=== PATIENT | female | born 1955 | race Caucasian/White ===

== ENCOUNTER 2018-07-01 03:50 | Observation (INO) | payer BC ==
--- NOTE | 2018-07-01 04:19 | ED PDOC ---
Arrival/HPI - General Chief Complaint: Chest Pain Time Seen by Provider: 07/01/18 03:59 Historian: Patient - History of Present Illness Narrative History of Present Illness (Text): 07/01/18 04:06 Eva Morales is a 62 year old female, whose past medical history includes diabetes and ESRD on hemodialysis (Thu/Thu/Thu), who presents to the emergency department brought in by EMS for chest pain Patient states she woke up this morning with mid-sternal chest pain with associated shortness of breath. Patient notes she was fully dialyzed yesterday and states she has not experienced similar symptoms in the past. The patient denies any fever, chills, abdominal pain, nausea, vomiting, diarrhea, urinary symptoms, back pain, neck pain, headache, dizziness, or any other complaints. Biomechanical Engineer: Dr. Christian Symptom Onset: Gradual Symptom Course: Unchanged Activities at Onset: Light Context: Home Past Medical History - Provider Review Nursing Documentation Reviewed: Yes - Cardiac Hx Hypertension: Yes Hx Pacemaker: No - Neurological Hx Paralysis: No - Renal Hx Dialysis: Yes Type of Dialysis Access: R chest wall, R AV fistula Date of Last Dialysis Treatment: 06/30/18 - Endocrine/Metabolic Hx Diabetes Mellitus Type 2: Yes - Hematological/Oncological Hx Blood Transfusions: No - Musculoskeletal/Rheumatological Hx Musculoskeletal Disorders: No - Psychiatric Hx Emotional Abuse: No Hx Physical Abuse: No Hx Substance Use: No - Surgical History Other/Comment: AV fistula R, R chest wall dialysis access - Anesthesia Hx Anesthesia: Yes Hx Anesthesia Reactions: No Hx Malignant Hyperthermia: No - Suicidal Assessment Feels Threatened In Home Enviroment: No Family/Social History - Physician Review Nursing Documentation Reviewed: Yes Family/Social History: Unknown Family HX Smoking Status: Light Smoker < 10 Cigarettes Daily Hx Alcohol Use: No Hx Substance Use: No Allergies/Home Meds Allergies/Adverse Reactions: Allergies No Known Allergies Allergy (Verified 07/01/18 03:55) Home Medications: Home Meds Medication Instructions Recorded Confirmed RX: Nebivolol [Bystolic] 10 mg PO DAILY 01/08/18 07/01/18 RX: hydrALAZINE [Apresoline] 100 mg PO TID 01/08/18 07/01/18 Review of Systems - Physician Review All systems were reviewed & negative as marked: Yes - Review of Systems Constitutional: Normal. absent: Fevers Eyes: Normal ENT: Normal Respiratory: SOB Cardiovascular: Chest Pain Gastrointestinal: Normal. absent: Abdominal Pain, Diarrhea, Nausea, Vomiting Genitourinary Female: Normal. absent: Dysuria, Frequency, Hematuria, Urine Output Changes Musculoskeletal: Normal. absent: Back Pain, Neck Pain Skin: Normal. absent: Rash Neurological: Normal. absent: Headache, Dizziness Endocrine: Normal Hemo/Lymphatic: Normal Psychiatric: Normal Physical Exam Vital Signs Reviewed: Yes Vital Signs Pulse Resp BP Pulse Ox 07/01/18 04:07 67 16 151/85 H 100 Temperature: Afebrile Blood Pressure: Hypertensive Pulse: Regular Respiratory Rate: Normal Appearance: Positive for: Well-Appearing, Non-Toxic, Comfortable Pain Distress: None Mental Status: Positive for: Alert and Oriented X 3 - Systems Exam Head: Present: Atraumatic, Normocephalic Pupils: Present: PERRL Extroacular Muscles: Present: EOMI Conjunctiva: Present: Normal Mouth: Present: Moist Mucous Membranes Neck: Present: Normal Range of Motion Respiratory/Chest: Present: Clear to Auscultation, Good Air Exchange. No: Respiratory Distress, Accessory Muscle Use Cardiovascular: Present: Regular Rate and Rhythm, Normal S1, S2. No: Murmurs Abdomen: No: Tenderness, Distention, Peritoneal Signs Back: Present: Normal Inspection Upper Extremity: Present: Normal Inspection. No: Cyanosis, Edema Lower Extremity: Present: Normal Inspection. No: Edema Neurological: Present: GCS=15, CN II-XII Intact, Speech Normal Skin: Present: Warm, Dry, Normal Color. No: Rashes Psychiatric: Present: Alert, Oriented x 3, Normal Insight, Normal Concentration Medical Decision Making ED Course and Treatment: 07/01/18 04:06 Impression: 62 year old female complaining of chest pain and shortness of breath. Plan: -- EKG -- CXR -- Labs, cardiac enzymes -- UA -- Reassess and disposition Progress Notes: reviewed EKG, NSR at 68 bpm[address] Non-specific ST/T wave changes. 07/01/18 05:05 CXR reviewed, shows no acute processes. 07/01/18 05:[address] Byrne, who is aware and agrees with plan. Accepts pt in to his service. Pt will go to remote telemetry observation for chest pain. - RAD Interpretation Radiology Orders: 07/01/18 04:07 CHEST PORTABLE [RAD] Stat Wire Mesh Gate Assembler: ED Physician - EKG Interpretation Interpreted by ED Physician: Yes Type: 12 lead EKG - Scribe Statement The provider has reviewed the documentation as recorded by the Scribe Provider Attestation: Elizabeth Tate Provider Scribe Attestation: All medical record entries made by the Scribe were at my direction and personally dictated by me. I have reviewed the chart and agree that the record accurately reflects my personal performance of the history, physical exam, medical decision making, and the department course for this patient. I have also personally directed, reviewed, and agree with the discharge instructions and disposition. Disposition/Present on Arrival - Present on Arrival Any Indicators Present on Arrival: No History of DVT/PE: No History of Uncontrolled Diabetes: No Urinary Catheter: No History of Decub. Ulcer: No History Surgical Site Infection Following: None - Disposition Have Diagnosis and Disposition been Completed?: Yes Diagnosis: Chest pain Disposition: HOSPITALIZED Disposition Time: 05:10 Patient Problems: Current Active Problems Problem Status Onset Chest pain Acute Condition: FAIR
[2018-07-01 04:35] LABS: BASO # 0.01 K/mm3 (0.0-2.0); BASO % 0.2 % (0.0-3.0); EOS % 0.6 % (1.5-5.0); HEMOGLOBIN 11.5 g/dL (12.0-16.0); LYMPH # 0.7 (1.2-3.4); LYMPH % 10.3 % (22.0-35.0); MEAN CORPUSCULAR HEMOGLOBIN 28.7 pg (25.0-35.0); MEAN CORPUSCULAR HGB CONC 31.5 g/dl (31.0-37.0); MEAN PLATELET VOLUME 9.1 fl (7.0-11.0); MONO # 0.9 (0.1-0.6); MONO % 14.6 % (1.0-6.0); RBC 4.01 10^6/uL (3.5-6.1); RED CELL DISTRIBUTION WIDTH 14.5 % (11.5-14.5); WHITE BLOOD COUNT 6.3 10^3/uL (4.5-11.0)
[2018-07-01 04:51] LABS: ALB/GLOB RATIO 1.2 (1.1-1.8); ALBUMIN 4.4 g/dL (3.0-4.8); AST/SGOT 32 U/L (14-36); BLOOD UREA NITROGEN 50 mg/dL (7-21); CALCIUM 8.8 mg/dL (8.4-10.5); GFR NON-AFRICAN AMERICAN 5
[2018-07-01 05:02] LABS: TROPONIN I < 0.01 ng/mL
[2018-07-01 05:40] LABS: ALT/SGPT < 6 U/L (7-56)
[2018-07-01 07:06] LABS: INR 1.05; PROTHROMBIN TIME 11.9 SECONDS (9.4-12.5)
--- NOTE | 2018-07-01 07:51 | RAD ---
Date of service: 07/01/2018 HISTORY: cp COMPARISON: Chest radiographs 01/08/2018. FINDINGS: LUNGS: In the interval, a total right central venous dialysis catheter is identified in situ terminating at the right atrium. No interval pulmonary disease appreciated bilaterally. PLEURA: No significant pleural effusion identified, no pneumothorax apparent. CARDIOVASCULAR: No aortic atherosclerotic calcification present. Normal cardiac size. No pulmonary vascular congestion. OSSEOUS STRUCTURES: No significant abnormalities. VISUALIZED UPPER ABDOMEN: Normal. OTHER FINDINGS: None. IMPRESSION: No interval acute cardiopulmonary disease appreciated. Interval central venous dialysis catheter deployment.
[2018-07-01] MEDS ORDERED: Aminophylline 25 mg/ml Inj ONE (08:48)
[2018-07-01] MEDS ORDERED: NEBIVOLOL 10 MG PO SCH (10:00)
--- NOTE | 2018-07-01 12:25 | CP.PCM.CON ---
History of Present Illness - History of Present Illness History of Present Illness: Awake, alert,no distress Reason for consultation: Cardiac evaluation of chest pain Brief history of present illness: A 62 year old female who came in to the ER due to mid sternal chest pain non radiating with shortness of breath. She had hemodialysis yesterday. History of diabetes and ESRD on hemodialysis (Mon/Thu/Thu), right AV fistula, hypertension, current smoker. Seen and examined by Dr. Ye Review of Systems - Review of Systems All systems: reviewed and no additional remarkable complaints except Review of Systems: as per HPI Past Patient History - Past Social History Smoking Status: Light Smoker < 10 Cigarettes Daily - CARDIAC Hx Hypertension: Yes Hx Pacemaker: No - NEUROLOGICAL Hx Paralysis: No - RENAL Hx Dialysis: Yes Type of Dialysis Access: R chest wall, R AV fistula Date of Last Dialysis Treatment: 06/30/18 - ENDOCRINE/METABOLIC Hx Diabetes Mellitus Type 2: Yes - HEMATOLOGICAL/ONCOLOGICAL Hx Blood Transfusions: No - MUSCULOSKELETAL/RHEUMATOLOGICAL Hx Musculoskeletal Disorders: No - PSYCHIATRIC Hx Emotional Abuse: No Hx Physical Abuse: No Hx Substance Use: No - SURGICAL HISTORY Other/Comment: AV fistula R, R chest wall dialysis access - ANESTHESIA Hx Anesthesia: Yes Hx Anesthesia Reactions: No Hx Malignant Hyperthermia: No Meds Allergies/Adverse Reactions: Allergies Allergy/AdvReac Type Severity Reaction Status Date / Time No Known Allergies Allergy Verified 07/01/18 03:55 - Medications Medications: Current Medications Acetaminophen (Tylenol 325mg Tab) 650 mg PO Q4H PRN PRN Reason: Pain, Mild (1-3) Hydralazine HCl (Apresoline) 100 mg PO TID [facility] Nebivolol [Bystolic] (10 Mg (Home Med)) 10 mg PO DAILY [facility] Physical Exam - Constitutional Appears: Non-toxic, No Acute Distress - Head Exam Head Exam: NORMAL INSPECTION, NORMOCEPHALIC - Eye Exam Eye Exam: Normal appearance Pupil Exam: NORMAL ACCOMODATION - ENT Exam ENT Exam: Mucous Membranes Moist - Respiratory Exam Respiratory Exam: Decreased Breath Sounds, NORMAL BREATHING PATTERN - Cardiovascular Exam Cardiovascular Exam: REGULAR RHYTHM, +S1, +S2 Additional comments: denies chest pain - GI/Abdominal Exam GI & Abdominal Exam: Normal Bowel Sounds, Soft - Exam Additional comments: ESRD on hemodialysis 3x a week (MWF) - Extremities Exam Additional comments: right AV shunt positive bruit - Neurological Exam Neurological exam: Alert, Oriented x3 - Psychiatric Exam Psychiatric exam: Normal Affect, Normal Mood - Skin Skin Exam: Dry, Normal Color, Warm Results - Vital Signs Recent Vital Signs: Last Vital Signs Temp Pulse 80 07/01/18 07:00 Resp 18 07/01/18 07:00 BP 131/89 07/01/18 07:00 Pulse Ox 100 07/01/18 07:00 - Labs Result Diagrams: 07/01/18 04:28 07/01/18 04:28 Labs: Laboratory Results - last 24 hr 07/01/18 07/01/18 07/01/18 04:28 04:28 06:27 WBC 6.3 RBC 4.01 Hgb 11.5 L D Hct 36.5 MCV 91.0 MCH 28.7 MCHC 31.5 RDW 14.5 Plt Count 236 MPV 9.1 Neut % (Auto) 74.3 H Lymph % (Auto) 10.3 L [place] % (Auto) 14.6 H Eos % (Auto) 0.6 L Baso % (Auto) 0.2 Lymph # (Auto) 0.7 L [place] # (Auto) 0.9 H Eos # (Auto) 0.0 Baso # (Auto) 0.01 Absolute Neuts (auto) 4.69 PT 11.9 INR 1.05 APTT 34.0 Sodium 134 Potassium 4.2 Chloride 93 L Carbon Dioxide 28 Anion Gap 18 BUN 50 H Creatinine 7.7 H* D Est GFR ( Amer) 6 Est GFR (Non-Af Amer) 5 Random Glucose 83 Calcium 8.8 Magnesium 2.2 Total Bilirubin 0.7 AST 32 ALT < 6 L Alkaline Phosphatase 76 Lactate Dehydrogenase 500 Total Creatine Kinase 50 Troponin I < 0.01 Total Protein 8.1 Albumin 4.4 Globulin 3.6 Albumin/Globulin Ratio 1.2 Assessment & Plan - Assessment and Plan (Free Text) Assessment: A 62 year old female who came in to the ER due to mid sternal chest pain non r adiating with shortness of breath.She had hemodialysis yesterday. History of diabetes and ESRD on hemodialysis (Mon/Thu/Thu), right AV fistula, hypertension, current smoker. Chest X ray showed no pulmonary vascular congestion. Troponin normal. Rule out acute coronary syndrome. Echo to evaluate LV function. Stress test for ischemia. Denies chest pain now. Denies shortness of breath. No previous cardiac work up at [facility] [place]. Plan: Denies chest pain, denies shortness of breath Heart rate controlled Blood pressure controlled Stress test done awaiting result For Echo to evaluate LV function Continue current treatment Continue current medications On Hydralazine 100 mg TID, Bystolic 10 mg daily at home Bystolic is non formulary to [facility] pharmacy, Will change to Lopressor 25 mg BID Renal on consult Will follow up Plan and treatment discussed with Dr. Ye Thank you Dr. Byrne for the opportunity of taking care of Eva Morales - Date & Time Date: 07/01/18 Time: 08:45
--- NOTE | 2018-07-01 15:18 | CARD ---
APPROVED REPORT Date of service: 07/01/2018 EKG Measurement Heart [id number] ND 150P56 [id number] <Conclusion> Normal sinus rhythm Cannot rule out Anterior infarct, age undetermined Abnormal ECG
[2018-07-01] MEDS ORDERED: Albuterol-Ipratrop 3 mg / 0.5 (3 ml) UD IH PRN (16:14)
--- NOTE | 2018-07-01 16:39 | CARD ---
APPROVED REPORT Date of service: 07/01/2018 EXAM: Two-dimensional and M-mode echocardiogram with Doppler and color Doppler. INDICATION LV Function:SystolicDiastolic 2D DIMENSIONS Left Atrium (2D)3.9 (1.6-4.0cm)IVSd1.6 (0.7-1.1cm) LVDd3.6 (3.9-5.9cm)PWd1.4 (0.7-1.1cm) LVDs2.2 (2.5-4.0cm)FS (%) 39.0 % LVEF (%)70.4 (>50%) M-Mode DIMENSIONS Aortic Root2.40 (2.2-3.7cm)Aortic Cusp Exc.0.90 (1.5-2.0cm) Aortic Valve AoV Peak Lpyleirx033.0cm/sAoV VTI38.3cmAO Peak GR.20mmHg LVOT Peak Ngbdjpty447.0cm/sLVOT VTI29.20cmAO Mean GR.11mmHg Mitral Valve MV E Leibgxiv80.8cm/sMV A Gklrkdct029.0cm/sE/A ratio0.6 TDI E/Lateral E'0.0E/Medial E'0.0 Tricuspid Valve TR Peak Rtucvmbd513sd/sRAP [id number] Peak Gr.18mmHg [id number] LEFT VENTRICLE The left ventricle is normal size. There is mild to moderate concentric left ventricular hypertrophy. The left ventricular function is normal.EF-65-70% There is normal LV segmental wall motion. Transmitral Doppler flow pattern is Grade III-reversible restrictive diastolic dysfunction. No left ventricle thrombus noted on this study. There is no ventricular septal defect visualized. There is no left ventricular aneurysm. There is no mass noted in the left ventricle. RIGHT VENTRICLE The right ventricle is normal size. There is normal right ventricular wall thickness. The right ventricular systolic function is normal. ATRIA The left atrium is borderline dilated. The right atrium size is normal. The interatrial septum is intact with no evidence for an atrial septal defect. AORTIC VALVE The aortic valve is calcified and displays decreased opening. There is trace aortic regurgitation. There is mild valvular aortic stenosis. There is no aortic valvular vegetation. MITRAL VALVE The mitral valve is calcified but opens well. Mitral annular calcification is moderate to severe. Mitral regurgitation is trace. There is no mitral valve stenosis. There is no evidence of mitral valve prolapse. TRICUSPID VALVE The tricuspid valve leaflets are thickened , but open well. There is mild tricuspid regurgitation.RVSP_28 mmof Hg. There is no tricuspid valve stenosis. There is no tricuspid valve prolapse or vegetation. PULMONIC VALVE The pulmonary valve is normal in structure. There is no pulmonic valvular regurgitation. There is no pulmonic valvular stenosis. GREAT VESSELS The aortic root is normal in size. The ascending aorta is normal in size. The pulmonary artery is normal. The IVC is normal in size and collapses >50% with inspiration. PERICARDIAL EFFUSION There is no pleural effusion. There is no pericardial effusion. <Conclusion> The left ventricle is normal size. There is mild to moderate concentric left ventricular hypertrophy. The left ventricular function is normal.EF-65-70% There is trace aortic regurgitation. There is mild valvular aortic stenosis. Mitral regurgitation is trace. There is mild tricuspid regurgitation.RVSP_28 mmof Hg. The IVC is normal in size and collapses >50% with inspiration. There is no pericardial effusion.
[2018-07-01] MEDS ORDERED: Albuterol-Ipratrop 3 mg / 0.5 (3 ml) UD IH SCH (20:00)
[2018-07-01] MEDS ORDERED: Pneumococcal 23-Valent Vaccine IM ONE (20:20)
--- NOTE | 2018-07-01 23:04 | CARD ---
APPROVED REPORT Date of service: 07/01/2018 Protocol: LEXISCAN Test Type: Lexiscan Sestamibi Stress Test Attending Physician: Dr. Olga Griggs Referring Physician: Dr. Geoff Byrne Test Indications: Chest Pain Height:4 ft 11 in Weight:143lbs Medical History: 62 year old female with h/o htn Target HR: 158 bpm Resting ECG: RSR Resting Heart Rate: 71 bpm Resting Blood Pressure: 130/80mmHg Submaximum (85%): 134 bpm PROCEDURE Pharmacologic stress testing was performed using 0.4mg per 5ml of regadenoson given intravenously over 7-10 seconds. Reversal agent aminophyline 100 mg, given intravenously for Dyspnea. POST EXERCISE Reason for Termination: Protocol completed Target HR: No Max HR: 69 bpm 67% of Maximum Predicted HR: 158 bpm Exercise duration: 00:30 min:sec, 0 Stage Exercise capacity: 1.0METs Max Blood Pressure: 130/80mmHg Blood Pressure response to exercise: normal resting BP - appropriate response Heart Rate response to exercise: appropriate Chest Pain: No, none Angina index: 0 Arrhythmia: No, none ST Change: No, none Deviation: 0 mm INTERPRETATION Stress EKG Conclusion: IV LEXISCAN NUCLEAR STRESS TEST NEGATIVE FOR CHEST PAIN AND NEGATIVE FOR ST-T CHANGES. NUCLEAR SCAN REPORT PENDING. Signed by Olga Griggs Electronically Approved: 07/01/2018 11:27:31 EXAM: Myocardial Perfusion REST/STRESS Stress Test Type: Pharmacologic Imaging Protocol The imaging protocol used to acquire images was Rest Tc-99m/stress Tc-99m 1 day Rest Spect myocardial perfusion imaging was performed in supine position 50 minutes following the injection of 10.3 mCi of Tc-99 Myoview. At peak stress, the patient was injected intravenously with 30.2mCi of Tc-99 tetrofosmin after an infusion time of 0 minutes and 10 seconds. Gated Stress Spect was performed 65 minutes after intravenous Tc-99 Myoview injection. The images were gated to evaluate regional wall motion and calculate ventricular ejection fraction.Images were reconstructed using backfilter projection method in short horizontal and verticle long axis. Spect slices were generated. LV Perfusion The quality of the study is good. The left ventricle is normal in size. The right ventricle is unremarkable. The lung uptake is normal. The distribution of tracer reveals mildly decreased perfusion in the apical wall on the stress study. The remainder of the LV myocardium is unremarkable. The rest myocardial perfusion study shows no significant change. Wall Motion Wall motion study shows good contractility of the left ventricle. LVEF = 62%. Conclusion 1. Essentially normal SPECT myocardial perfusion study. 2. Fixed, apical defect is most likely due to breast attenuation. 3. Normal gated wall motion of the left ventricle.
[2018-07-02] MEDS: Pantoprazole 20 mg EC Tab PO SCH (06:16)
--- NOTE | 2018-07-02 07:00 | CP.PCM.PN ---
Subjective - Date & Time of Evaluation Date of Evaluation: 07/02/18 Time of Evaluation: 06:30 - Subjective Subjective: Awake, alert, no distress Reason for consultation: Cardiac evaluation of chest pain,History of diabetes and ESRD on hemodialysis (Mon/Thu/Thu), right AV fistula, hypertension, current smoker. Seen and examined by Dr. Ye Objective - Vital Signs/Intake and Output Vital Signs (last 24 hours): Temp Pulse Resp BP Pulse Ox 98.0 F 71 20 121/79 98 07/02/18 06:00 07/02/18 06:00 07/02/18 06:00 07/02/18 06:00 07/02/18 06:00 Intake and Output: 07/02/18 07/02/18 06:59 18:59 Intake Total 420 Balance 420 - Medications Medications: Current Medications Acetaminophen (Tylenol 325mg Tab) 650 mg PO Q4H PRN PRN Reason: Pain, Mild (1-3) Last Admin: 07/01/18 20:05 Dose: 650 mg Albuterol/Ipratropium (Duoneb 3 Mg/0.5 Mg (3 Ml) Ud) 3 ml IH [id number] PRN PRN Reason: Shortness of Breath Last Admin: 07/01/18 16:41 Dose: 3 ml Hydralazine HCl (Apresoline) 100 mg PO TID [facility] Last Admin: 07/01/18 15:46 Dose: Not Given Ibuprofen (Motrin Tab) 400 mg PO BID PRN PRN Reason: Pain, Mild (1-3) Last Admin: 07/01/18 16:18 Dose: 400 mg Metoprolol Tartrate (Lopressor) 25 mg PO BID [facility] Oxycodone HCl (Oxycodone Immediate Release Tab) 5 mg PO Q6H PRN PRN Reason: Pain, moderate (4-7) Pantoprazole Sodium (Protonix Ec Tab) 20 mg PO 0600 [facility] Last Admin: 07/02/18 06:16 Dose: 20 mg - Labs Labs: 07/01/18 04:28 07/01/18 04:28 PT 11.9 SECONDS (9.4-12.5) 07/01/18 06:27 INR 1.05 07/01/18 06:27 APTT 34.0 Seconds (26.9-38.3) 07/01/18 06:27 - Constitutional Appears: Non-toxic, No Acute Distress - Head Exam Head Exam: NORMAL INSPECTION, NORMOCEPHALIC - Eye Exam Eye Exam: Normal appearance Pupil Exam: NORMAL ACCOMODATION - ENT Exam ENT Exam: Mucous Membranes Moist, Normal Exam - Respiratory Exam Respiratory Exam: Clear to Ausculation Bilateral, NORMAL BREATHING PATTERN - Cardiovascular Exam Cardiovascular Exam: REGULAR RHYTHM, +S1, +S2 Additional comments: Telemetry NSR 70's - GI/Abdominal Exam GI & Abdominal Exam: Soft, Normal Bowel Sounds - Extremities Exam Extremities Exam: Full ROM Additional comments: 1+edema Right AV shunt, minimal bruit right chest permacath - Neurological Exam Neurological Exam: Alert, Awake, Oriented x3 - Psychiatric Exam Psychiatric exam: Normal Affect, Normal Mood - Skin Skin Exam: Dry, Normal Color, Warm Assessment and Plan - Assessment and Plan (Free Text) Assessment: A 62 year old female who came in to the ER due to mid sternal chest pain non radiating with shortness of breath.She had hemodialysis yesterday. History of diabetes and ESRD on hemodialysis (Thu/Thu/Thu), right AV fistula, hypertension, current smoker. Chest X ray showed no pulmonary vascular congestion. Troponin normal. Rule out acute coronary syndrome. Denies chest pain now. Denies shortness of breath. No previous cardiac work up at [facility] [place]. Stress test done and showed normal ,no ischemia, LVEF 62%, Echo done and showed LVEF 65-70%, trace AR/TR, RVSP 28mmHg, mild aortic stenosis. Chest pain musculoskletal. Denies chest pain . Denies shortness of breath. right AV fistula less or no bruit. as per patient she was referred to Vascular as out patient. Has right permacath for hemodialysis. For hemodialysis today.Cardiac status stable. Plan: Denies chest pain, denies shortness of breath Stress test normal, no ischemia Will discontinue telemetry Heart rate controlled Blood pressure controlled Continue current treatment Continue current medications On Hydralazine 100 mg TID, Lopressor 25 mg BID Renal on consult Smoking cessation Will follow up Plan and treatment discussed with Dr. Ye
[2018-07-02 07:15] LABS: HDL CHOLESTEROL 45 mg/dL (29-60)
[2018-07-02 07:27] LABS: LDL CHOLESTEROL 97 mg/dL (0-129)
--- NOTE | 2018-07-02 12:38 | CON ---
DATE: 07/02/2018 REASON FOR CONSULTATION: Chest pain, need for dialysis. HISTORY OF PRESENT ILLNESS: This is a 62-year-old lady, known to me from outpatient hemodialysis. The patient presented to the emergency room yesterday with complaints of chest pain. Midsternal pain. She reports that she had a good treatment on Thursday. She went home. Subsequently, developed chest pain and hence came to the emergency room. She denies any radiation. She denies any shortness of breath. She denies any palpitations. She denies any pain in the arm. She underwent a stress test yesterday. Her stress test was essentially negative. Currently, she is sitting in bed. She is comfortable. PAST MEDICAL AND SURGICAL HISTORY: NIDDM, hypertension, ESRD, anemia of chronic kidney disease, secondary hyperparathyroidism, AV fistula, right chest wall dialysis catheter. FAMILY HISTORY: Noncontributory. SOCIAL HISTORY: No smoking, no alcohol use, no IV drug abuse. ALLERGIES: NO KNOWN DRUG ALLERGIES. MEDICATIONS AT HOME: Hydralazine 100 t.i.d., Bystolic 10 mg daily. REVIEW OF SYSTEMS: Twelve systems are reviewed, pertinent positives as mentioned in history of presenting illness, rest unremarkable. PHYSICAL EXAMINATION: GENERAL: Elderly lady sitting in bed, in no acute distress. VITAL SIGNS: Blood pressure 121/79, heart rate 71, respiratory rate 20, and temperature 98. HEENT: Normocephalic, atraumatic, positive pallor. NECK: Supple, no JVD. LUNGS: Bilateral equal air entry, bilateral equal expansion, no rales. CARDIAC: S1, S2. Regular rate and rhythm, no murmur, no rub. ABDOMEN: Obese, distended, soft, nontender, bowel sounds present. EXTREMITIES: No lower extremity edema. INTAKE AND OUTPUT: Not charted. LABORATORY DATA: WBC 6.3, hemoglobin 11.5, hematocrit 36.5, platelets 236. Sodium 134, potassium 4.2, chloride 93, CO2 of 28, BUN 50, creatinine 7.7, glucose 83, calcium 8.8, magnesium 2.2, AST 32, ALT less than 6, CPK 50. Troponin less than 0.01, albumin 4.4, globulin 3.6. Total cholesterol 201, LDL 97, TSH 0.27. Echocardiogram, normal left ventricular size, EF 65-70%, trace AR, mild . No pericardial effusion. Stress test, negative. CURRENT MEDICATIONS: Apresoline 100 t.i.d., DuoNeb, Lopressor 25 b.i.d., oxycodone, Protonix, Tylenol. ASSESSMENT: 1. Noncardiac chest pain/musculoskeletal. 2. Hypertension. 3. End-stage renal disease. 4. Anemia of chronic kidney disease. PLAN: 1. Dialysis today. 2. Continue antihypertensives. 3. No objection to discharge post dialysis today. Sima Miller MD
[2018-07-02] MEDS: oxyCODONE 5 mg Immediate Release Tab PO PRN ×2 (13:16→19:47)
[2018-07-02 18:59] LABS: CALCIUM 8.2 mg/dL (8.4-10.5)
--- NOTE | 2018-07-02 19:00 | HP ---
DATE OF EXAM: 07/02/2018 CHIEF COMPLAINT: A 62-year-old female came in with chest pain. HISTORY OF PRESENT ILLNESS: A 62-year-old female with history of hypertension, diabetes, hypercholesteremia, chronic renal failure on hemodialysis, came in with left side chest pain not radiating anywhere, associated with short of breath. However, the patient mentioned also chest pain is increased by deep breathing. There is no relation to movement and no radiation, no nausea, no sweating, no palpitations and no dizziness. PAST MEDICAL HISTORY: As above. Chronic renal failure on hemodialysis, hypertension, hypercholesteremia and diabetes type 2. ALLERGIES: NO KNOWN ALLERGIES. SOCIAL HISTORY: Lives with her . No smoking. No drinking. FAMILY HISTORY: Noncontributory. REVIEW OF SYSTEMS: Noted general weakness, no back pain, easy fatigability and tiredness. Otherwise negative. No rectal bleeding. No diarrhea. No nausea or vomiting. PHYSICAL EXAMINATION: GENERAL: The patient was seen yesterday, 07/01/2018. VITAL SIGNS: Temperature 97.1, heart rate 82, blood pressure is 121/63, respiration 20 and saturation 95% on room air. HEENT AND NECK: Normal. No JVD. No thyromegaly. CHEST: Clear bilateral. CARDIAC: First sound and second sound normal. No murmur, rub or gallop. ABDOMEN: Obese and nontender. EXTREMITIES: No edema.shoulder tender, chest wall upper part is tender NEUROLOGICAL: Normal. There is left AV fistula. LABORATORY DATA: White count 6.3, hemoglobin 11.5, hematocrit 36.5 and platelets 236. Chemistry; sodium 134, potassium 4.2, chloride 93, bicarb 28, BUN 50 and creatinine 7.7. Liver function test is normal. Troponin is negative. LDL cholesterol 97 and TSH is 0.27. The patient also had EKG done in emergency room and has normal sinus rhythm, cannot rule out old anterior infarctions , age undetermined. She also had a chest x-ray, it shows no active pulmonary disease, just right central venous catheter in the right atrium. IMPRESSION AND PLAN: 1. This is 62-year-old female with chronic renal failure on hemodialysis, hypertension and diabetes type 2. Will admit the patient for telemetry, cardiology consult. We will admit the patient with new onset left-sided chest pain. We will do cardiology evaluation and will monitor the patient here on p.r.n. basis. We will give oxycodone.ibuprofen. Resume blood pressure medicines, baby aspirin. 2. Chronic renal failure. 3. Hemodialysis, getting renal consult Dr. Christian. 5. Hypertension, resume medications. 6. Obesity. 7. Possible the patient may have obstructive sleep apnea. We will discuss the patient. Geoff Byrne MD MTDD
[2018-07-02] MEDS ORDERED: HYDROmorphone 1 mg/ml ISec IVP STA (20:50)
[2018-07-03] MEDS: Pantoprazole 20 mg EC Tab PO SCH (05:54)
[2018-07-03] MEDS ORDERED: MethylPREDNISolone Depo 40 mg/ml Inj IM ONE (09:17)
[2018-07-03] MEDS ORDERED: Bupivacaine 0.5% Inj(30mL) IJ ONE (09:17)
--- NOTE | 2018-07-03 09:52 | RAD ---
Date of service: 07/02/2018 PROCEDURE: Radiographs of the Right Shoulder HISTORY: Bilateral shoulder pain COMPARISON: No prior. 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 Slightly high-riding humeral head suggesting chronic rotator cuff injury. SOFT TISSUES: Normal. OTHER FINDINGS: In situ right IJ large-bore central venous attic S catheter with tip in the SVC IMPRESSION: No evidence of acute displaced fracture nor dislocation. 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 Slightly high-riding humeral head suggesting chronic rotator cuff injury.
--- NOTE | 2018-07-03 09:53 | RAD ---
Date of service: 07/02/2018 PROCEDURE: Radiographs of the Left Shoulder HISTORY: shoulder pain COMPARISON: No prior. FINDINGS: BONES: No evidence of acute displaced fracture nor dislocation JOINTS: Mild degenerative osteoarthritis left acromioclavicular and glenohumeral joints.. Slightly high-riding humeral head suggesting chronic rotator cuff injury. SOFT TISSUES: Normal. OTHER FINDINGS: None. IMPRESSION: No evidence of acute displaced fracture nor dislocation mild degenerative osteoarthritis left acromioclavicular and glenohumeral joints.. Slightly high-riding humeral head suggesting chronic rotator cuff injury.
[2018-07-03] MEDS: oxyCODONE 5 mg Immediate Release Tab PO PRN ×2 (12:51→19:04)
[2018-07-03] MEDS ORDERED: Sodium Chloride 0.9% 250 ML IV SCH (17:45)
--- NOTE | 2018-07-03 20:31 | PN ---
DATE: 07/02/2018 SUBJECTIVE: A 62-year-old female complained of left-sided pain, more in upper chest and shoulder area. Her stress test was normal. The patient otherwise is stable. She did complain of severe pain, 10/10, and especially noted during dialysis, but otherwise she is stable. PHYSICAL EXAMINATION: VITAL SIGNS: Her temperature 98, heart rate 70, blood pressure 105/55, respirations 20, saturation 100% on room air. HEAD AND NECK: Normal. No JVD. No thyromegaly. CHEST: Clear bilateral. Also upper chest is tender muscle area. CARDIAC: First sound and second sound normal. No murmur, rub, or gallop. ABDOMEN: Soft, obese, nontender. EXTREMITIES: No edema. Left upper shoulder decreased range of motion, tender on touch. GENERAL: The patient generally does not look in any respiratory distress. She is stable otherwise. LABORATORY DATA: Sodium 132, potassium 4.5, chloride 91, bicarb 24, BUN 82, creatinine 10.7, calcium 8.2, and her phosphorus is 9.2. IMPRESSION AND PLAN: 1. Chest pain, atypical for cardiac. Stress test is normal. Good left ventricular function on echocardiography with normal tricuspid and right ventricular pressure and normal right ventricle. Plan is to observe. 2. Hypertension. Blood pressure seems low after dialysis. We will hold off on any blood pressure medications. 3. Musculoskeletal left shoulder pain. I gave her ibuprofen and oxycodone and in dialysis, she received Dilaudid 1 mg. 4. History of hypertension. We will hold off on any medication because of low blood pressure in the evening. 5. Chronic renal failure. Continue hemodialysis. PLAN: Continue current therapy. Follow up clinically. We will consider also Pulmonary to see her. She really had some sort of sleep apnea. She is obese though she lost weight, but she still needs to be evaluated. Continue current therapy. We will keep the patient till tomorrow because of her severe pain. She wants to be evaluated by Orthopedics. We will get x-rays of the shoulder, and we will get Dr. Morales orthopedic consult for left shoulder injection before discharge. Geoff Byrne MD [facility] # [id number]
[2018-07-03] MEDS: Enoxaparin 30 mg Syringe SC SCH (21:30)
[2018-07-04] MEDS: oxyCODONE 5 mg Immediate Release Tab PO PRN ×2 (01:43→08:18)
[2018-07-04] MEDS: Pantoprazole 20 mg EC Tab PO SCH (05:35)
[2018-07-04 06:13] VITALS: O2SAT 95
[2018-07-04] MEDS ORDERED: HYDROmorphone 0.5 mg/0.5 ml ISec IVP STA (09:05)
[2018-07-04] MEDS: Enoxaparin 30 mg Syringe SC SCH (09:39)
[2018-07-04 12:30] VITALS: BP 107/74; PULSE 81; RESP 18; TEMP 97.8
[2018-07-04] MEDS ORDERED: Lidocaine 5% Patch TD SCH (13:30)
--- NOTE | 2018-07-04 22:18 | PN ---
DATE: 07/04/2018 SUBJECTIVE: The patient is seen sitting in chair. She is awake. She is alert. She is comfortable. She complains of pain over her left shoulder. Son is at bedside. PHYSICAL EXAMINATION: GENERAL: Elderly lady sitting in chair. VITAL SIGNS: Blood pressure 107/74, heart rate 81, respiratory rate 18, and temperature 97.8. HEENT: Normocephalic and atraumatic. Positive pallor. NECK: Supple. No JVD. LUNGS: Bilateral equal air entry, bilateral equal expansion. CARDIAC: S1 and S2. Regular rate rhythm. No murmur. No rub. ABDOMEN: Soft, nondistended, and nontender. Bowel sounds present. EXTREMITIES: No lower extremity edema. INTAKE AND OUTPUT: Not charted. LABORATORY DATA: Sodium 132, potassium 4.5, chloride 91, CO2 of 24, BUN 82, creatinine 10.7, glucose 90, calcium 8.2, and phosphorus 9.2. CURRENT MEDICATIONS: Hydralazine 100 t.i.d. on hold, Dilaudid, Lidoderm, Lopressor 25 b.i.d., Lovenox 30 mg, PhosLo, Protonix, Reglan, Tylenol, and Zofran. ASSESSMENT: 1. Atypical/noncardiac chest pain. 2. Hypertension. 3. Musculoskeletal pain. 4. Hypotension. PLAN: 1. It appears that the patient was on hydralazine 100 b.i.d. at home, Lopressor 12.5 once a day on nondialysis days and Bystolic 10 mg daily. Her medications was different in the hospital and probably for her hypotension. She was getting hydralazine 100 t.i.d. and Lopressor 25 b.i.d. Hence, we will go back to her outpatient regimen. 2. Echocardiogram and stress tests were normal. 3. Needs better phosphate control. Continue PhosLo. 4. No objection to discharge. 5. We will follow up as outpatient. Sima Miller MD
--- NOTE | 2018-07-05 02:20 | CON ---
DATE: 07/04/2018 REFERRING PHYSICIAN: Geoff Byrne MD REASON FOR CONSULT: Suspected sleep apnea syndrome. Matter of fact, had a history of sleep apnea syndrome, noncompliant with the CPAP, admitted with chest pain. HISTORY OF PRESENT ILLNESS: This is a 62 years old female with known history of sleep apnea syndrome diagnosed many years ago, noncompliant, never used the CPAP. Also has hypertension, diabetes, hyperlipidemia, chronic renal failure, dialysis dependent, admitted with upper chest pain symptoms, daytime sleepy, tired, nighttime loud snoring. No hemoptysis, hematemesis, or hematuria. No diarrhea reported. Gets short of breath with exertion though. ALLERGIES: NONE KNOWN. SOCIAL HISTORY: Positive smoking. Denied any alcohol use. FAMILY HISTORY: No significant cardiopulmonary disease reported. MEDICATIONS: She is on hydralazine 100 mg three times a day, Dilaudid was given 0.5 mg one dose, DuoNeb every 6 hours p.r.n., lidocaine patch daily, metoprolol tartrate 25 mg twice a day, Lovenox 30 mg subcu daily, Motrin 200 mg every 6 hours p.r.n., oxycodone immediate release 5 mg every 6 hours p.r.n., Protonix 40 mg daily, Tylenol on p.r.n. basis. REVIEW OF SYSTEMS: No headache, no rhinitis. Admits to have a loud snoring, daytime sleepy and tired, admits that she has had a chest pain. No nausea, no vomiting, no diarrhea. No leg pain or leg swelling. PHYSICAL EXAMINATION: GENERAL: In no acute distress. VITAL SIGNS: Temperature is 98, heart rate 81, respiratory rate is 18, blood pressure 107/74, pulse ox 95% on room air. HEENT: Moist mucous membranes. Small oral cavity. Crowded airway. Mallampati score is 4. NECK: Supple. No JVD. LUNGS: Scattered rhonchi. HEART: S1 and S2. ABDOMEN: Soft, nontender. No organomegaly. EXTREMITIES: No edema. NEUROLOGIC: Awake, alert, follows simple commands. LABORATORY DATA: Shows hemoglobin 11.5, hematocrit 36.5, WBC 6.3, platelet is 236. INR 1.05, PTT 34. Sodium 132, potassium 4.5, chloride 91, bicarbonate 24, BUN 82, creatinine 10.7, calcium is 8.2, phosphorus 9.2. TSH is 0.27. Cholesterol is 201. Has a myocardial stress test done which shows essentially normal SPECT myocardial perfusion study, fixed apical defect, is most likely due to breast attenuation, normal gated wall motion with left ventricle function. LV ejection fraction is about 62%. Chest x-ray done in emergency room shows no interval acute cardiopulmonary disease appreciated. IMPRESSION AND PLAN: Sleep apnea syndrome, probably has a component of chronic obstructive pulmonary disease, she is active smoker; hypertension; degenerative joint disease; renal failure, dialysis dependent. I had a long discussion with the patient and family at bedside. All the questions answered. Spoke about sleep apnea and its consequence in relation to cardiovascular, cardiopulmonary, center nervous system effects. She clearly expressed understanding. Will make followup appointment for sleep study. Also urged her to stop smoking. She should get sleep study upon discharge as outpatient. Thank you and we will follow with you. Olga Kingsley MD
--- NOTE | 2018-07-05 04:49 | DS ---
CHIEF COMPLAINT: Patient was admitted with left-sided chest pain. She had atypical chest pain. She had a myocardial nuclear perfusion scan, which was normal. Patient, otherwise, she is stable. She is seen also by [facility], orthopedic for her left shoulder, left side pain, which is worse with movement, tender and also occasionally happens with deep breathing. Patient also seen by Pulmonary, Dr. Kingsley and patient had saturation 100%. She was stable. She has no complaint, otherwise. She just received an injection on day of discharge and she was given Dilaudid also, and she was doing very well. PHYSICAL EXAMINATION: VITAL SIGNS: On discharge temperature 97.8, heart rate 81, blood pressure 107/74, respiration 18, saturation was 98% on room air, I did it myself. HEAD AND NECK: Normal. No JVD. No thyromegaly. CHEST: Clear bilateral, tender in the upper chest and shoulder area and supraspinatus and in front of the shoulder. CARDIAC: First sound and second sound normal. No murmur, rub, or gallop. ABDOMEN: Soft, obese, nontender. EXTREMITIES: No edema. NEUROLOGIC: Normal. IMPRESSION AND PLAN: Patient seen by Cardiology consult Dr. Ye, seen by Renal consult Dr. Miller, and she is seen in consultation with pulmonary doctor. He did give us other order, okay to discharge the patient and see her as an outpatient. Patient otherwise stable. She has no new complaints and she will be discharged home. She advised to reduce her blood pressure medicine, to have the dose of hydralazine 50 b.i.d. and her Bystolic to 5 mg once a day and do not take any blood pressure medicine on day of dialysis and follow up clinically. She had myocardial test and she had an echocardiogram, which shows normal right ventricular size and pressure and normal echo, good LV function 70%, and patient was ready for discharge. DISCHARGE DIAGNOSES: 1. Atypical chest pain. 2. Left-sided musculoskeletal chest pain. 3. Left shoulder pain. 4. Hypertension with medication adjustment. 5. Anxiety. Geoff Byrne MD
--- NOTE | 2018-07-05 09:05 | CON ---
DATE: 07/03/2018 LOCATION: In room 270, bed 1. HISTORY OF PRESENT ILLNESS: Ms. Abdelrahman Morales is a 62-year-old female complaints of left worse than right shoulder pain. X-ray shows evidence of chronic rotator cuff tear worse on the right than the left and the left has size of impingement and osteoarthritis of a glenohumeral joint and AC joint and old healed left clavicle fracture. She could elevate her shoulder above 90 degrees at times, but sometimes does cause pain. we could inject with Depo-Medrol marking, but she wants to wait for her to make a decision. In the meantime, we give physical therapy from long compressors and gentle range of motion. FINAL DIAGNOSIS: Osteoarthritis of left shoulder and rotator cuff tear more on the left than the right symptomatic, but x-ray downs the right looks worse than the left. Frederick Morales DO
--- NOTE | 2018-07-05 09:07 | CON ---
DATE: 07/04/2018 ORTHOPEDIC CONSULT HISTORY OF PRESENT ILLNESS: The patient is a 62-year-old female with complaint of left shoulder pain, I am seeing her first on 07/03/2018, but she want to talk to her about giving her left shoulder Depo-Medrol injection, so she talked her , so I am seeing her again on 07/04/2018. She does have x-ray of rotator cuff arthropathy, rotator cuff tear and osteoarthritis subacromial joint and glenohumeral joint and AC joint. So, we injected the left shoulder through the lateral portal and subacromial space with Marcaine and Depo-Medrol and hopefully this will help some of her symptoms and I told her to follow her outpatient downs if she comes to the office. I gave her my number and I could follow her there. She does not want surgery, the only thing to do is to sent it for physical therapy may be in 6 months to get another Depo-Medrol injection. FINAL DIAGNOSES: Osteoarthritis left shoulder, chronic rotator cuff tear. Frederick Morales DO
== END 2018-07-04 15:32 | disposition home or self-care (01) ==
LOC: ED 03:50 → ERH 05:09 → 2RSO 06:55
PROVIDERS: ADMIT Internal Medicine; ATTEND Internal Medicine
DX: R07.89 Other chest pain (principal); D63.1 Anemia in chronic kidney disease; E11.22 Type 2 diabetes mellitus with diabetic chronic kidney disease; I12.0 Hypertensive chronic kidney disease with stage 5 chronic kidney disease or end stage renal disease; N18.6 End stage renal disease; N25.81 Secondary hyperparathyroidism of renal origin; Z99.2 Dependence on renal dialysis; Z91.19 Patient's noncompliance with other medical treatment and regimen; E78.00 Pure hypercholesterolemia, unspecified; F17.200 Nicotine dependence, unspecified, uncomplicated; F41.9 Anxiety disorder, unspecified; G47.30 Sleep apnea, unspecified; J44.9 Chronic obstructive pulmonary disease, unspecified; M19.012 Primary osteoarthritis, left shoulder; M75.100 Unspecified rotator cuff tear or rupture of unspecified shoulder, not specified as traumatic; E78.5 Hyperlipidemia, unspecified
CPT/HCPCS: 20610; 36415; 71045; 73030; 78452; 80048; 80053; 80061; 82550; 83036; 83615; 83735; 84100; 84443; 84484; 85025; 85610; 85730; 93005; 93017; 93306; 94640; 99285; A9502; G0378; J0280; J1170; J1650; J2405; J2765; J2785

== ENCOUNTER 2018-08-05 09:33 | Outpatient (CLI) | payer BC | END 2018-08-05 09:34 | disposition home or self-care (01) | LOC: RAD 09:33 ==